=== PATIENT | male | born 1950 | race Caucasian/White ===

== ENCOUNTER 2018-09-07 11:41 | Inpatient (IN) | payer OTHER, MEDICAID ==
[~2018-09-07] VITALS: Ht 170.2 cm; Wt 142.0 kg
[2018-09-07] VITALS (20 sets, daily range): BP systolic 130–168; BP diastolic 52–87
[2018-09-07] MEDS ORDERED: IPRATROPIUM NEB FS 0.5 MG/2.5 ML AMPUL.NEB ONE (11:57)
[2018-09-07] MEDS ORDERED: ALBUTEROL FS 2.5 MG/3 ML VIAL.NEB ONE (11:57)
[2018-09-07] MEDS ORDERED: ALBUTEROL FS 2.5 MG/3 ML VIAL.NEB CONTNEB ONE (12:00)
[2018-09-07] MEDS ORDERED: IPRATROPIUM NEB FS 0.5 MG/2.5 ML AMPUL.NEB NEB ONE (12:00)
[2018-09-07 12:17] LABS: BASOPHILS # (AUTO) 0.2 /CMM (0.0-0.2); BASOPHILS % (AUTO) 0.9 % (0.0-2.0); EOSINOPHILS % (AUTO) 0.4 % (0.0-6.0); HEMATOCRIT 34 % (39-51); HEMOGLOBIN 10.8 g/dL (13.5-17.5); LYMPHOCYTES # (AUTO) 0.8 /CMM (0.8-4.8); LYMPHOCYTES % (AUTO) 4.1 % (20.0-44.0); MEAN CORPUSCULAR HGB CONC 32 g/dl (31.0-36.0); MEAN CORPUSCULAR VOLUME 92 fL (80-96); MONOCYTES # (AUTO) 1.1 /CMM (0.1-1.30); MONOCYTES % (AUTO) 5.7 % (2.0-12.0); NEUTROPHILS # (AUTO) 16.8 /CMM (1.8-8.9); NEUTROPHILS % (AUTO) 88.9 % (43.0-81.0); PLATELET COUNT (AUTO) 554 /CMM (150-450); RDW COEFFICIENT OF VARIATION 13.7 (11.5-15.0); RED BLOOD CELL COUNT(AUTO) 3.67 MIL/uL (4.5-6.0)
[2018-09-07 12:28] LABS: CREATININE 3.2 mg/dL (0.6-1.3); POTASSIUM 4.6 mmol/L (3.5-5.1)
[2018-09-07] MEDS ORDERED: AZTREONAM 1 G in IV NS 0.9% 100 ML IV ONE (12:30)
[2018-09-07] MEDS ORDERED: CEFEPIME 1 GM in IV D5W 50 ML IV ONE (12:30)
[2018-09-07] MEDS ORDERED: VANCOMYCIN 1 GM in IV D5W 250 ML IV ONE (12:30)
--- NOTE | 2018-09-07 12:30 | NUR ---
RT PT CAME IN WITH NON REBREATHER SOB, PLACED ON BIPAP PER MD ORDERS S/T 20/5 16RR 50% O2, ONOFRE WELL. BAG AND MASK AT HOB. CONTINUOS TX GIVEN ONOFRE WELL NO ADVERSE REACTION NOTED ATT. ABG DRAWN WILL CONTINUE TO MONITOR Addendum: 09/07/18 at 1321 by NORM KAPLAN RT Amended: Links added.
[2018-09-07 12:35] LABS: TROPONIN I 0.019 ng/mL (0.00-0.056)
[2018-09-07 12:40] LABS: ALBUMIN 2.8 g/dL (3.4-5.0); BILIRUBIN,DIRECT 0.1 mg/dL (0.0-0.2); BILIRUBIN,TOTAL 0.4 mg/dL (0.2-1.0); TOTAL PROTEIN, SERUM 7.6 g/dL (6.4-8.2)
--- NOTE | 2018-09-07 12:43 | NUR ---
PT BIB PARAMEDICS FROM [facility] FOR LOW SATURATION 88% PLACED OM NRM AT FACILITY SATURATION IMPROVED TO 99% BUT PT DID NOT LOOK THE SAME USUAL. CURRENTLY PT TACHYPNIC DIFFICULTY BREATHING WBC ELEVATED PIV IN RAC PLACED BY MD YOST UNDER ULTRA SOUND, LABS TAKEN AND BLOOD CULTURES DONE. PT ON BIPAP ABG AND EKG DONE.
--- NOTE | 2018-09-07 13:04 | NUR ---
ICU 264
[2018-09-07 14:19] LABS: ABG OXYGEN SATURATION 97.5 % (92.0-98.5); ABG PCO2 51.8 mmHg (35.0-45.0); ABG PH 7.299 (7.350-7.450); ABG PO2 115.4 mmHg (75.0-100.0); AaDO2 182.8 mmHg; COHb 0.9 % (0.5-1.5); MetHb 0.3 % (0.0-1.5); O2Hb 96.3 % (94.0-97.0); SITE, ABG Left Radial; VENT MODE, BG ST 20/5 16RR 50%
[2018-09-07] MEDS ORDERED: MAG HYDROX/AL HYDROX/SIMETH 30 ML UDC PO PRN (14:30)
[2018-09-07] MEDS ORDERED: ZOLPIDEM TARTRATE 5 MG TABLET PO PRN (14:30)
[2018-09-07] MEDS ORDERED: VANCOMYCIN 1 GM in IV NS 0.9% 250 ML IV SCH (14:30)
[2018-09-07] MEDS ORDERED: ONDANSETRON HCL/PF 4 MG/2 ML VIAL IVP PRN (14:30)
[2018-09-07] MEDS ORDERED: ACETAMINOPHEN 325 MG TABLET PO PRN (14:30)
[2018-09-07] MEDS ORDERED: MAGNESIUM HYDROXIDE 30 ML UDC PO PRN (14:30)
[2018-09-07] MEDS ORDERED: Z GUARD REMEDY 2 OZ OINT TP PRN (14:30)
[2018-09-07] MEDS ORDERED: CEFEPIME 1 GM in IV D5W 50 ML IV SCH (14:30)
[2018-09-07] MEDS ORDERED: HYDROCODONE/APAP 5/325MG 1 EACH TABLET PO PRN (14:30)
[2018-09-07] MEDS ORDERED: VANCOMYCIN 500 MG in IV D5W 100 ML IV ONE (15:00)
[2018-09-07] MEDS ORDERED: IV D5/ 0.9% NACL 1,000 ML IV PRN (15:00)
[2018-09-07] MEDS ORDERED: FEE PK DOSING 1 MIN EA MC ONE (15:20)
[2018-09-07] MEDS: ENOXAPARIN SODIUM 30 MG/0.3 ML DISP.SYRIN SQ SCH (15:55)
--- NOTE | 2018-09-07 16:14 | NUR ---
RN NOTE 1410: Admitted 67 y/o, awake, alert to name, lethargic at this time. Off Bipap for transfer, Dr. Rosa, spoke with RT, will do F/U ABG after 2 hours. Keep on Bipap for now per MD. Skin assessment done, noted with BUE and BLE multiple redness, perineal redness. RAC PIV intact. Started Vancomycin, bag given from ER. Ordered Barimaxx. Placed on Hernandez cath, noted with cloudy yellow urine, sent specimen to lab. SR 80's on the monitor. 1500: Spoke with sister, informed re: episode of fall from SNF and with c/o left shoulder pain, before, MD ordered left shoulder Xray. 1600: facilities operations technician doing shoulder Xray. 1610: ABG resulted, Dr. Rosa aware, adjusted Bipap setting. Now on 25/5 50% rate 20.
[2018-09-07 16:23] LABS: ABG BASE EXCESS -2.5 mmol/L; ABG OXYGEN SATURATION 96.6 % (92.0-98.5); ABG PCO2 55.7 mmHg (35.0-45.0); ABG PH 7.269 (7.350-7.450); ABG PO2 94.3 mmHg (75.0-100.0); AaDO2 199.5 mmHg; COHb 0.3 % (0.5-1.5); MetHb 0.6 % (0.0-1.5); O2Hb 95.7 % (94.0-97.0); SITE, ABG Right Radial
[2018-09-07] MEDS: ALBUTEROL FS 2.5 MG/3 ML VIAL.NEB NEB SCH ×2 (16:44→20:03)
[2018-09-07] MEDS: IPRATROPIUM NEB FS 0.5 MG/2.5 ML AMPUL.NEB NEB SCH ×3 (16:44→23:18)
[2018-09-07] MEDS ORDERED: ALLO100T PO (17:32)
[2018-09-07] MEDS ORDERED: AMIN30LI4 PO (17:32)
[2018-09-07] MEDS ORDERED: MULT-447 PO (17:32)
[2018-09-07] MEDS ORDERED: AMLO10TA6 PO (17:32)
[2018-09-07] MEDS ORDERED: INSU100V7 SQ (17:32)
[2018-09-07] MEDS ORDERED: OXYC30TA2 PO (17:32)
[2018-09-07] MEDS ORDERED: INSU100V27 SQ (17:32)
[2018-09-07] MEDS ORDERED: ASCO500T9 PO (17:32)
[2018-09-07] MEDS ORDERED: SERT100T PO (17:32)
[2018-09-07] MEDS ORDERED: ACET-2605 PO ×2 (17:32)
[2018-09-07] MEDS ORDERED: FURO-144 PO (17:32)
[2018-09-07] MEDS ORDERED: BISA10SU8 RC (17:32)
[2018-09-07] MEDS ORDERED: NA P133E RC (17:32)
[2018-09-07] MEDS ORDERED: MAGN400O6 PO (17:32)
[2018-09-07] MEDS ORDERED: LEVO150T8 PO (17:32)
[2018-09-07] MEDS ORDERED: BLOO-668 IN (17:32)
[2018-09-07] MEDS ORDERED: ZINC220C8 PO (17:32)
[2018-09-07] MEDS ORDERED: ACET-868 PO (17:32)
[2018-09-07] MEDS ORDERED: FERR325T23 PO (17:32)
[2018-09-07] MEDS ORDERED: LIRA0.6P2 SQ (17:32)
[2018-09-07] MEDS ORDERED: GABA-534 PO (17:32)
[2018-09-07] MEDS ORDERED: POLY17PO4 PO (17:32)
[2018-09-07] MEDS ORDERED: ALPR2TAB7 PO (17:32)
[2018-09-07] MEDS ORDERED: DOCU-141 PO (17:32)
[2018-09-07] MEDS ORDERED: ATOR10TA PO (17:32)
[2018-09-07 17:33] LABS: APPEARANCE,URINE SL CLOUDY (CLEAR); BILIRUBIN,URINE NEGATIVE (NEGATIVE); BLOOD, URINE 2+ Ery/uL (NEGATIVE); COLOR,URINE YELLOW (YELLOW); KETONES,URINE NEGATIVE (NEGATIVE); LEUKOCYTE ESTERASE ,URINE 1+ (NEGATIVE); NITRITE, URINE NEGATIVE (NEGATIVE); PH,URINE 5.5 (5.0-8.0); PROTEIN,URINE 2+ mg/dl (NEGATIVE); UGLUCOSE NEGATIVE (NEGATIVE); UROBILINOGEN,URINE 0.2 EU/dL (0.2)
[2018-09-07 17:46] LABS: CREATININE, URINE 140.8 MG/DL (30.0-125.0); URINE TOTAL PROTEIN 93.2 mg/dL (0-11.9)
[2018-09-07 17:51] LABS: BACTERIA,URINE Many /HPF (None Seen); SQUAMOUS EPITHELIAL CELL,UR Few /HPF (None Seen); WBC,URINE TOO NUMEROUS TO COUN /HPF (0-3)
[2018-09-07 17:52] LABS: EOSINOPHIL,URINE None Seen
--- NOTE | 2018-09-07 20:08 | NUR ---
Received pt on BIPAP, pt stable on current settings, no SOB noted alarm is on and audible, plugged into red outlet. Addendum: 09/07/18 at 2009 by ADY WILLIS RT Amended: Links added.
--- NOTE | 2018-09-07 20:56 | NUR ---
INCLINED RAILWAY OPERATOR. INITIAL ASSESSMENT. RECEIVED THE PT REST ON THE BED. PT IS LETHARGIC. SLEEPING. BIPAP ON. SETTINGS 20/5, RATE IS 20.FIO2 50%. SAT 98%. NO ACUTE DISTRESS NOTED. PROGRAMMING INTERN SHOWING NSR, IV RT AC 18G. IVF D5NS 50ML/H,HOB ELEVATED. FC PATENT. WILL CONTINUE TO MONITOR VITALS.
[2018-09-07] MEDS ORDERED: AZTREONAM 1 G in IV NS 0.9% 100 ML IV SCH (21:00)
[2018-09-07] MEDS: MEROPENEM 500 MG in IV NS 0.9% 50 ML IV SCH (21:25)
[2018-09-07] MEDS ORDERED: BISACODYL SUPP (10 MG) 10 MG/SUPP.RECT SUPP.RECT RC PRN (22:00)
[2018-09-07] MEDS: DOCUSATE SODIUM 100 MG CAPSULE PO SCH (22:00)
[2018-09-07] MEDS ORDERED: ATORVASTATIN 10 MG TABLET PO SCH (22:00)
[2018-09-07] MEDS ORDERED: DEXTROSE 50%-WATER 50 ML DISP.SYRIN IV PRN (22:00)
[2018-09-07] MEDS: BLOOD SUGAR DIAGNOSTIC 1 EACH STRIP IN SCH (22:53)
[2018-09-07] MEDS ORDERED: INSULIN REGULAR, HUMAN 100 UNIT/ML 3 ML VIAL ONE (22:55)
[2018-09-07] MEDS: INSULIN REGULAR, HUMAN 100 UNIT/ML 3 ML VIAL SQ PRN (23:19)
--- NOTE | 2018-09-07 23:20 | NUR ---
ADJUNCT INSTRUCTOR OF WOMEN'S STUDIES. LIPITOR AND COLACE 2200 NOT GIVEN, PT ON BIPAP. AND PT IS VERY LETHARGIC
[2018-09-08] VITALS (31 sets, daily range): BP systolic 127–174; BP diastolic 55–87
--- NOTE | 2018-09-08 00:49 | NUR ---
PT ON BIPAP. REMAINING SAME BIPAP SETTING TOLERATED WELL.
[2018-09-08] MEDS: BLOOD SUGAR DIAGNOSTIC 1 EACH STRIP IN SCH ×6 (00:57→21:13)
[2018-09-08] MEDS: INSULIN REGULAR, HUMAN 100 UNIT/ML 3 ML VIAL SQ PRN ×6 (01:02→21:15)
[2018-09-08] MEDS: IPRATROPIUM NEB FS 0.5 MG/2.5 ML AMPUL.NEB NEB SCH ×6 (03:36→23:06)
--- NOTE | 2018-09-08 05:27 | NUR ---
MEND WORKER. AM CARE, ORAL CARE, BED BATH GIVEN. LINEN CHANGED, REMAINING SAME BIPAP SETTING TOLERATED WELL. SAT 98%, NO ACUTE DISTRESS NOTED. CANDY PULLER SHOWING NSR. IV RT AC IVF D5NS 50ML/H. HOB ELEVATED. FC PATENT. TURN AND REPOSITION Q2H. WILL CONTINUE TO MONITOR VITALS.
[2018-09-08 05:32] LABS: BASOPHILS # (AUTO) 0.1 /CMM (0.0-0.2); BASOPHILS % (AUTO) 0.3 % (0.0-2.0); EOSINOPHILS % (AUTO) 0.1 % (0.0-6.0); HEMATOCRIT 29 % (39-51); HEMOGLOBIN 9.5 g/dL (13.5-17.5); LYMPHOCYTES # (AUTO) 0.7 /CMM (0.8-4.8); LYMPHOCYTES % (AUTO) 2.9 % (20.0-44.0); MEAN CORPUSCULAR HGB CONC 33 g/dl (31.0-36.0); MEAN CORPUSCULAR VOLUME 92 fL (80-96); MONOCYTES # (AUTO) 1.4 /CMM (0.1-1.30); MONOCYTES % (AUTO) 6.2 % (2.0-12.0); NEUTROPHILS # (AUTO) 20.5 /CMM (1.8-8.9); NEUTROPHILS % (AUTO) 90.5 % (43.0-81.0); PLATELET COUNT (AUTO) 447 /CMM (150-450); RED BLOOD CELL COUNT(AUTO) 3.14 MIL/uL (4.5-6.0); WHITE BLOOD COUNT (AUTO) 22.6 K/uL (4.3-11.0)
[2018-09-08 05:46] LABS: CHOLESTEROL 124 mg/dL (<200); CREATINE KINASE, TOTAL 912 U/L (39-308); HDL CHOLESTEROL 32 mg/dL (40-60); LDL 72 mg/dL (0-99); TRIGLYCERIDES 106 mg/dL (30-150)
[2018-09-08 05:52] LABS: ALANINE AMINOTRANSFERASE 34 U/L (12-78); ALBUMIN 2.4 g/dL (3.4-5.0); ALKALINE PHOSPHATASE 164 U/L (46-116); ASPARTATE AMINOTRANSFERASE 55 U/L (15-37); BILIRUBIN,TOTAL 0.4 mg/dL (0.2-1.0); CALCIUM, SERUM 8.9 mg/dL (8.5-10.1); CARBON DIOXIDE 29 mmol/L (21-32); CHLORIDE 101 mmol/L (98-107); CREATININE 3.1 mg/dL (0.6-1.3); GLUCOSE 191 mg/dL (74-106); MAGNESIUM 2.4 mg/dL (1.8-2.4); PHOSPHORUS 4.2 mg/dL (2.5-4.9); POTASSIUM 4.7 mmol/L (3.5-5.1); SODIUM SERUM 137 mmol/L (136-145); TOTAL PROTEIN, SERUM 6.9 g/dL (6.4-8.2); UREA NITROGEN, BLOOD 64 mg/dL (7-18)
[2018-09-08] MEDS: LEVOTHYROXINE SODIUM 75 MCG TABLET PO SCH (07:30)
--- NOTE | 2018-09-08 08:06 | NUR ---
WOUND CARE CONSULT: PT PRESENTS WITH PEELING SKIN TO UPPER ARMS, UNKNOWN ETIOLOGY, RASH TO GROIN FOLDS, PERINEUM AND INNER THIGHS AND RT THIGH WOUND/SCRATCH, PRESENT ON ADMISSION. DEFER TO MD FOR ARMS. PT ON BARIMAX ETS AIR BED. PT ON BIPAP AT THIS TIME. PT CURSING AT TIMES. RECOMMENDATIONS MADE FOR WOUND AND SKIN CARE AND PROTECTION. DISCUSSED WITH NURSING STAFF. PT HAS KELVIN CATH. CURRENT BURT SCORE IS 12. MD IN AGREEMENT WITH PLAN OF CARE. Addendum: 09/08/18 at 0809 by JANET BOWLING WNDNU Amended: Links added.
[2018-09-08 08:08] LABS: THYROID STIMULATING HORMONE 0.479 uIU/mL (0.358-3.74)
[2018-09-08] MEDS: ALBUTEROL FS 2.5 MG/3 ML VIAL.NEB NEB SCH ×4 (08:26→19:42)
[2018-09-08] MEDS: MEROPENEM 500 MG in IV NS 0.9% 50 ML IV SCH ×2 (08:35→21:13)
[2018-09-08] MEDS: GABAPENTIN 300 MG CAPSULE PO SCH ×3 (08:52→17:12)
[2018-09-08] MEDS: AMLODIPINE BESYLATE 10 MG TABLET PO SCH (08:52)
[2018-09-08] MEDS: SERTRALINE HCL 25 MG TABLET PO SCH (08:52)
[2018-09-08] MEDS: ASCORBIC ACID 500 MG TABLET PO SCH (08:52)
[2018-09-08] MEDS: NITROGLYCERIN 30 GM TUBE TP SCH ×2 (08:53→21:13)
[2018-09-08] MEDS: LACTOBACILLUS RHAMNOSUS GG 1 EACH CAP.SPRINK PO SCH ×2 (08:55→17:12)
[2018-09-08] MEDS ORDERED: FERROUS SULFATE (325 MG) 325 MG/TAB TABLET PO SCH (09:00)
[2018-09-08 10:23] LABS: ABG BASE EXCESS 1.3 mmol/L; ABG OXYGEN SATURATION 94.2 % (92.0-98.5); ABG PCO2 50.8 mmHg (35.0-45.0); ABG PH 7.351 (7.350-7.450); ABG PO2 69.3 mmHg (75.0-100.0); AaDO2 230.1 mmHg; COHb 0.3 % (0.5-1.5); MetHb 0.5 % (0.0-1.5); O2Hb 93.4 % (94.0-97.0); SITE, ABG Right Radial; VENT MODE, BG VENTI MASK 50%
--- NOTE | 2018-09-08 11:23 | NUR ---
RN NOTE 0745: Received patient on Bipap, no respiratory distress noted at this time. PIV intact, IVF infusing as ordered. No c/o discomfort at this time. Hernandez cath intact, noted with clear yellow urine drained to BSD. On Barimaxx. Off DVT pumps for BLE redness. 0900: RT placed patient on Venturi mask 50%, tolerated so far. 0930: ABG resulted, kept on Venturi mask for now. Patient is able to take PO meds, crushed. Patient refused breakfast, will continue to encourage. 1020: S/E by Dr. Bryant, patient is answering all questions. More responsive today. 1100: S/E by Dr. Cruz, no new order at this time. 1120: No any significant changes noted at this time. Kept clean, warm and dry. Needs anticipated.
[2018-09-08] MEDS: BACITRACIN/POLYMYXIN B 15 GM TUBE TP SCH (11:38)
[2018-09-08] MEDS: CLOTRIMAZOLE 1% 15 GM TUBE TP SCH ×2 (11:38→17:12)
--- NOTE | 2018-09-08 18:09 | NUR ---
RN NOTE No any significant changes noted. Kept clean, warm and dry. Needs attended. Kept call light at reach. On Barimaxx. on 4LPM of O2 via NC, will do Noc BIpap per Pulmo. Hernandez cath intact, noted with yellow urine drained to BSD. PIV intact.
--- NOTE | 2018-09-08 19:00 | NUR ---
CIGARETTE CARTON SEALER. INITIAL ASSESSMENT. RECEIVED THE PT REST ON THE BED. SLEEPING. OXYGEN 4L VIA NASAL CANNULA. SAT 98%. STATION TENDER SHOWING NSR. IV RT AC 18G. SALINE LOCK. HOB ELEVATED. FC PATENT. WILL CONTINUE TO MONITOR VITALS.
--- NOTE | 2018-09-08 20:06 | NUR ---
MACHINE HAND. RESPIRATORY MARIBEL TRYING TO PLACE BIPAP SUDDEN PT CRYING, PULLING OUT BIPAP. PT SAYING POLICE AROUND ME. I CALLED HEALTH MANAGER JAAJ . ORDERED ATIVAN 0.25MG ATIVAN IV ONCE. WILL CONTINUE TO MONITOR
--- NOTE | 2018-09-08 20:07 | NUR ---
BREATHING TX WASTED DUE TO PT IS UNCOOPERATIVE AND AGITATED AT THIS TIME. LEEANNA MCCRAY NOTIFIED. Addendum: 09/08/18 at 2019 by MARIBEL WINTERS RT UNABLE TO PLACED NOCTURNAL BIPAP AT THIS TIME DUE TO PT IS COMBATIVE AND AGITATED AT THIS TIME . LEEANNA MCCRAY NOTIFIED
--- NOTE | 2018-09-08 20:29 | NUR ---
PT IS CALM AT THIS TIME . PLACED NOCTURNAL BIPAP 25/5, RATE 20, 50%. BIPAP PLUGGED INTO RED OUTLET AND ALARMS SET AND AUDIBLE. AMBU BAG AT BEDSIDE. NO RESPIRATORY DISTRESS AT THIS TIME. RN SHAZIA NOTIFIED.
[2018-09-08] MEDS ORDERED: LORAZEPAM INJ 2 MG/ML VIAL IV ONE (20:30)
[2018-09-08] MEDS: ENOXAPARIN SODIUM 30 MG/0.3 ML DISP.SYRIN SQ SCH (21:13)
[2018-09-08] MEDS: DOCUSATE SODIUM 100 MG CAPSULE PO SCH (21:14)
--- NOTE | 2018-09-08 21:45 | NUR ---
Patient resides at [facility] [phone]. He is morbidly obese, requires assistance with adl's. His SNF attending MD Dr. Antonino Carter [phone]. He is currently in ICU on BIPAP. Current plan BIPAP off during the day and cont nocturnal BIPAP. Current dc plan is to return to [facility] via ambulance when discharge. Addendum: 09/08/18 at 2146 by SARINA ALSTON RN Amended: Links added.
[2018-09-09] VITALS (22 sets, daily range): BP systolic 105–154; BP diastolic 60–81
[2018-09-09] MEDS: INSULIN REGULAR, HUMAN 100 UNIT/ML 3 ML VIAL SQ PRN ×6 (00:29→20:56)
[2018-09-09] MEDS: BLOOD SUGAR DIAGNOSTIC 1 EACH STRIP IN SCH ×6 (00:31→20:52)
[2018-09-09] MEDS: IPRATROPIUM NEB FS 0.5 MG/2.5 ML AMPUL.NEB NEB SCH ×6 (03:12→23:52)
--- NOTE | 2018-09-09 04:34 | NUR ---
DIRECTOR OF ANCILLARY SERVICES. AM CARE, ORAL CARE, BED BATH GIVEN. LINEN CHANGED, REMAINING SAME BIPAP SETTING TOLERATED WELL. SAT 96%. NO ACUTE DISTRESS NOTED. MS SQL DBA SHOWING NSR. IV RT AC 18G. SALINE LOCK. HOB ELEVATED. TURN AND REPOSITION Q2H. FC PATENT. URINE DRAINING. TURN AND REPOSITION Q2H. WILL CONTINUE TO MONITOR VITALS.
[2018-09-09 05:25] LABS: BASOPHILS % (AUTO) 0.1 % (0.0-2.0); EOSINOPHILS % (AUTO) 0.4 % (0.0-6.0); HEMATOCRIT 31 % (39-51); HEMOGLOBIN 10.1 g/dL (13.5-17.5); LYMPHOCYTES # (AUTO) 1.1 /CMM (0.8-4.8); LYMPHOCYTES % (AUTO) 5.6 % (20.0-44.0); MEAN CORPUSCULAR HGB CONC 32 g/dl (31.0-36.0); MEAN CORPUSCULAR VOLUME 94 fL (80-96); MONOCYTES # (AUTO) 1.3 /CMM (0.1-1.30); MONOCYTES % (AUTO) 6.5 % (2.0-12.0); NEUTROPHILS # (AUTO) 17.5 /CMM (1.8-8.9); NEUTROPHILS % (AUTO) 87.4 % (43.0-81.0); PLATELET COUNT (AUTO) 482 /CMM (150-450); RED BLOOD CELL COUNT(AUTO) 3.33 MIL/uL (4.5-6.0)
[2018-09-09 05:36] LABS: CALCIUM, SERUM 8.1 mg/dL (8.5-10.1); CREATININE 2.9 mg/dL (0.6-1.3); MAGNESIUM 2.6 mg/dL (1.8-2.4); PHOSPHORUS 4.4 mg/dL (2.5-4.9); POTASSIUM 4.7 mmol/L (3.5-5.1)
--- NOTE | 2018-09-09 07:30 | NUR ---
SALES NEGOTIATOR NOTE: RECEIVED PATIENT IN BED, ASLEEP, BUT AROUSABLE TO TOUCH AND VERBALLY RESPONSIVE. ON NOCTURNAL BIPAP AT THE MOMENT AND WILL INFORM THE RESPIRATORY THERAPIST TO REMOVE THE BIPAP. RESPIRATION EVEN AND UNLABORED. SATURATING 95%. ON BAKED AND GRAPHITE INSPECTOR SR HR= 83. (R) AC IV SITE IN PLACED INTACT AND PATENT. HOB ELEVATED. ON BARIMAX BED. WARREN CATHETER IN PLACED WITH YELLOW URINE DRAINING TO GRAVITY. BED LOCKED AT ALL TIMES. CALL LIGHT WITHIN REACH. NEEDS ANTICIPATED.
[2018-09-09] MEDS: ALBUTEROL FS 2.5 MG/3 ML VIAL.NEB NEB SCH ×4 (07:49→19:25)
[2018-09-09] MEDS: MEROPENEM 500 MG in IV NS 0.9% 50 ML IV SCH ×2 (08:04→20:52)
[2018-09-09] MEDS: LEVOTHYROXINE SODIUM 75 MCG TABLET PO SCH (08:23)
[2018-09-09] MEDS: GABAPENTIN 300 MG CAPSULE PO SCH ×3 (08:36→17:25)
[2018-09-09] MEDS: LACTOBACILLUS RHAMNOSUS GG 1 EACH CAP.SPRINK PO SCH ×2 (08:36→17:25)
[2018-09-09] MEDS: AMLODIPINE BESYLATE 10 MG TABLET PO SCH (08:37)
[2018-09-09] MEDS: ASCORBIC ACID 500 MG TABLET PO SCH (08:37)
[2018-09-09] MEDS: NITROGLYCERIN 30 GM TUBE TP SCH ×2 (08:37→20:53)
[2018-09-09] MEDS: SERTRALINE HCL 25 MG TABLET PO SCH (08:37)
[2018-09-09] MEDS: CLOTRIMAZOLE 1% 15 GM TUBE TP SCH ×2 (08:38→17:35)
[2018-09-09] MEDS: BACITRACIN/POLYMYXIN B 15 GM TUBE TP SCH (08:39)
[2018-09-09] MEDS: FUROSEMIDE 40 MG/4 ML VIAL IV SCH ×2 (12:41→17:25)
[2018-09-09] MEDS: SOD FERRIC GLUC 125 MG in IV NS 0.9% 100 ML IV SCH (14:40)
[2018-09-09] MEDS ORDERED: VANCOMYCIN 1.5 GM in IV D5W 500 ML IV SCH (15:00)
[2018-09-09 15:09] LABS: PTH, INTACT 66 pg/mL (15-65)
--- NOTE | 2018-09-09 16:30 | NUR ---
PACKAGE DYER NOTE: PATIENT REPORT WAS GIVEN TO LEEANNA MAYERS FOR CONTINUITY OF CARE AND PATIENT WILL BE TRANSFER TO ROOM 107 IN [place]. PATIENT ON STABLE CONDITION.
--- NOTE | 2018-09-09 16:59 | NUR ---
MULTI TOWNSHIP ASSESSOR NOTE: PATIENT WAS TRANSFERRED VIA [facility] BED WITH 4 STAFF INCLUDING THE PRIMARY NURSE WITH THE PATIENT'S BIPAP MACHINE. PATIENT WAS AWAKE, ALERT AND ABLE TO MAKE HIS NEEDS KNOWN. ENDORSEMENT WAS GIVEN TO LEEANNA MAYERS AT THE BEDSIDE. IAN JACOBSEN WAS MADE AWARE OF THE TRANSFER. SPOKE WITH MELANI MYERS, SISTER WAS ALSO INFORMED.
--- NOTE | 2018-09-09 17:19 | NUR ---
MS/special forces weapons sergeant Patient received from ICU. Oriented to new surroundings, call light within each. Will continue to monitor.
--- NOTE | 2018-09-09 18:09 | NUR ---
MS/RN End note Vancomycin dose hung as ordered, level 10. Oral medications administered as ordered, no difficulty swallowing pills. Tele reading NSR. Patient remains in stable condition, all needs attended, call light within reach. Will endorse to night assistant.
--- NOTE | 2018-09-09 19:00 | NUR ---
RN ANN NOTE PATIENT IS AOX2, SPEECH CLEAR, DENIES PAIN, ON 4L O2 VIA NC, NO S/SX OF CARDIAC OR RESPIRATORY DISTRESS, F/C DRAINING TO GRAVITY YELLOW URINE, SKIN KEPT CLEAN AND DRY, 18G IV IN RAC, SITE IS CDI, PATENT, FLUSHING WELL, SAFETY MAINTAINED AT ALL TIMES, BED IN LOW LOCKED POSITION, CALL LIGHT WITHIN REACH, WILL CONTINUE TO MONITOR FRO ANY CHANGES.
[2018-09-09] MEDS: ENOXAPARIN SODIUM 30 MG/0.3 ML DISP.SYRIN SQ SCH (20:55)
[2018-09-09] MEDS: DOCUSATE SODIUM 100 MG CAPSULE PO SCH (21:10)
[2018-09-10] VITALS: BP 141/68
[2018-09-10] MEDS: BLOOD SUGAR DIAGNOSTIC 1 EACH STRIP IN SCH ×6 (00:25→21:54)
[2018-09-10] MEDS: INSULIN REGULAR, HUMAN 100 UNIT/ML 3 ML VIAL SQ PRN ×5 (00:26→22:04)
[2018-09-10] MEDS: IPRATROPIUM NEB FS 0.5 MG/2.5 ML AMPUL.NEB NEB SCH ×7 (03:30→23:44)
[2018-09-10 04:00] VITALS: BP 139/62
[2018-09-10] MEDS: ALBUTEROL FS 2.5 MG/3 ML VIAL.NEB NEB SCH ×5 (05:26→19:12)
--- NOTE | 2018-09-10 07:15 | NUR ---
ANN RN NOTE RECEIVED PATIENT IN STABLE CONDITION SLEEPING IN BED, BIPAP ON. SINUS RHYTHM WITH A HEART RATE OF 65 ON THE CARTON FORMING MACHINE HELPER. WARREN CATHETER DRAINING YELLOW URINE TO GRAVITY, IV SITE ON RIGHT ANTECUBITAL INTACT SALINE LOCK. HEAD OF BED ELEVATED, BED IN LOW AND LOCKED POSITION, CALL LIGHT WITHIN REACH, WILL CONTINUE TO MONITOR CLOSELY.
[2018-09-10 08:00] VITALS: BP 125/85
[2018-09-10] MEDS: MEROPENEM 500 MG in IV NS 0.9% 50 ML IV SCH ×2 (08:35→21:54)
[2018-09-10] MEDS: NITROGLYCERIN 30 GM TUBE TP SCH ×2 (08:37→21:56)
[2018-09-10] MEDS: CLOTRIMAZOLE 1% 15 GM TUBE TP SCH ×2 (08:38→18:10)
[2018-09-10] MEDS: LACTOBACILLUS RHAMNOSUS GG 1 EACH CAP.SPRINK PO SCH ×2 (08:39→18:11)
[2018-09-10] MEDS: LEVOTHYROXINE SODIUM 75 MCG TABLET PO SCH (08:39)
[2018-09-10] MEDS: SERTRALINE HCL 25 MG TABLET PO SCH (08:39)
[2018-09-10] MEDS: FUROSEMIDE 40 MG/4 ML VIAL IV SCH (08:39)
[2018-09-10] MEDS: BACITRACIN/POLYMYXIN B 15 GM TUBE TP SCH (08:39)
[2018-09-10] MEDS: ASCORBIC ACID 500 MG TABLET PO SCH (08:40)
[2018-09-10] MEDS: AMLODIPINE BESYLATE 10 MG TABLET PO SCH (08:40)
[2018-09-10] MEDS: GABAPENTIN 300 MG CAPSULE PO SCH ×3 (08:40→18:11)
[2018-09-10 09:37] LABS: BASOPHILS # (AUTO) 0.2 /CMM (0.0-0.2); BASOPHILS % (AUTO) 1.2 % (0.0-2.0); HEMATOCRIT 30 % (39-51); HEMOGLOBIN 9.7 g/dL (13.5-17.5); LYMPHOCYTES # (AUTO) 1.8 /CMM (0.8-4.8); LYMPHOCYTES % (AUTO) 9.8 % (20.0-44.0); MEAN CORPUSCULAR HGB CONC 32 g/dl (31.0-36.0); MEAN CORPUSCULAR VOLUME 93 fL (80-96); MONOCYTES # (AUTO) 1.3 /CMM (0.1-1.30); MONOCYTES % (AUTO) 7.1 % (2.0-12.0); NEUTROPHILS # (AUTO) 14.6 /CMM (1.8-8.9); NEUTROPHILS % (AUTO) 79.9 % (43.0-81.0); PLATELET COUNT (AUTO) 465 /CMM (150-450); RED BLOOD CELL COUNT(AUTO) 3.27 MIL/uL (4.5-6.0); WHITE BLOOD COUNT (AUTO) 18.3 K/uL (4.3-11.0)
[2018-09-10 09:49] LABS: CREATININE 2.6 mg/dL (0.6-1.3); MAGNESIUM 2.7 mg/dL (1.8-2.4); PHOSPHORUS 5.1 mg/dL (2.5-4.9); POTASSIUM 4.9 mmol/L (3.5-5.1)
[2018-09-10 09:52] LABS: ABG OXYGEN SATURATION 92.5 % (92.0-98.5); ABG PCO2 45.9 mmHg (35.0-45.0); ABG PH 7.379 (7.350-7.450); ABG PO2 65.8 mmHg (75.0-100.0); AaDO2 137.6 mmHg; COHb 0.3 % (0.5-1.5); MetHb 0.5 % (0.0-1.5); O2Hb 91.8 % (94.0-97.0); SITE, ABG Right Radial; VENT MODE, BG 4LNC
[2018-09-10] MEDS: FUROSEMIDE 100 MG/10 ML VIAL IV SCH ×3 (11:58→18:10)
[2018-09-10 12:00] VITALS: BP 132/60
[2018-09-10] MEDS: ALPRAZOLAM 1 MG TABLET PO PRN (14:34)
[2018-09-10] MEDS: SOD FERRIC GLUC 125 MG in IV NS 0.9% 100 ML IV SCH (14:46)
[2018-09-10 16:00] VITALS: BP_SYST 132; BP_SYST 139; BP_DIAS 60; BP_DIAS 61
--- NOTE | 2018-09-10 19:31 | NUR ---
SENIOR ACCOUNT EXECUTIVE NOTE PATIENT RESTING IN BED IN STABLE CONDITION, SINUS RHYTHM ON THE UNIT MANAGER, HEART RATE IN THE 70S. NO RESPIRATORY DISTRESS NOTED. PERIODS OF CONFUSION THROUGHOUT THE DAY NOTED. IV SITE ON LEFT HAND INTACT SALINE LOCK. HEAD OF BED ELEVATED, BED IN LOW AND LOCKED POSITION, CALL LIGHT WITHIN REACH, ENDORSED TO TOOL DESIGN ENGINEER NURSE FOR CONTINUITY OF CARE.
[2018-09-10 20:00] VITALS: BP 142/66
[2018-09-10] MEDS: ENOXAPARIN SODIUM 30 MG/0.3 ML DISP.SYRIN SQ SCH (21:55)
[2018-09-10] MEDS: DOCUSATE SODIUM 100 MG CAPSULE PO SCH (21:56)
[2018-09-11] VITALS: BP 128/63
--- NOTE | 2018-09-11 00:19 | NUR ---
PATIENT WAS RECEIVED ON BIPAP ORDER WITH NOTED SETTINGS. ALARMS ARE ON AND AUDIBLE.PATIENT STABLE AT THIS TIME AND TOLERATED CURRENT SETTINGS. WILL CONTINUE TO MONITOR. Addendum: 09/11/18 at 0025 by WILLARD LINK RT Amended: Links added.
[2018-09-11] MEDS: BLOOD SUGAR DIAGNOSTIC 1 EACH STRIP IN SCH ×5 (01:39→16:59)
[2018-09-11] MEDS: INSULIN REGULAR, HUMAN 100 UNIT/ML 3 ML VIAL SQ PRN ×5 (01:39→17:04)
[2018-09-11] MEDS: IPRATROPIUM NEB FS 0.5 MG/2.5 ML AMPUL.NEB NEB SCH ×4 (03:32→15:26)
[2018-09-11 04:00] VITALS: BP 148/70
[2018-09-11 06:07] LABS: BASOPHILS # (AUTO) 0.1 /CMM (0.0-0.2); BASOPHILS % (AUTO) 0.4 % (0.0-2.0); EOSINOPHILS % (AUTO) 3.4 % (0.0-6.0); HEMATOCRIT 31 % (39-51); LYMPHOCYTES # (AUTO) 1.6 /CMM (0.8-4.8); MEAN CORPUSCULAR HGB CONC 32 g/dl (31.0-36.0); MEAN CORPUSCULAR VOLUME 92 fL (80-96); MONOCYTES # (AUTO) 1.3 /CMM (0.1-1.30); MONOCYTES % (AUTO) 8.9 % (2.0-12.0); NEUTROPHILS # (AUTO) 11.1 /CMM (1.8-8.9); NEUTROPHILS % (AUTO) 76.3 % (43.0-81.0); PLATELET COUNT (AUTO) 544 /CMM (150-450); RED BLOOD CELL COUNT(AUTO) 3.37 MIL/uL (4.5-6.0); WHITE BLOOD COUNT (AUTO) 14.5 K/uL (4.3-11.0)
[2018-09-11 06:21] LABS: CALCIUM, SERUM 8.5 mg/dL (8.5-10.1); CREATININE 2.6 mg/dL (0.6-1.3); MAGNESIUM 2.6 mg/dL (1.8-2.4); PHOSPHORUS 5.2 mg/dL (2.5-4.9); POTASSIUM 4.2 mmol/L (3.5-5.1)
--- NOTE | 2018-09-11 06:31 | NUR ---
RN NOTE PATIENT REMAINED STABLE DURING MY SHIFT, TURNED AND REPOSITIONED Q 2 HOURS, WOUND CARE PROVIDED ORDERED PER MD, ALL SAFETY MEASURES TAKEN, CALL LIGHT WITHIN REACH, BED IN THE LOWEST POSITION, BED ALARM ACTIVATED, WILL ENDORSE TO AM SHIFT TO CONTINUE CARE
--- NOTE | 2018-09-11 07:10 | NUR ---
FORM TAMPING MACHINE OPERATOR NOTE RECEIVED PATIENT IN STABLE CONDITION, SINUS RHYTHM ON THE ORGAN TUNER. LEFT HAND IV SITE INTACT SALINE LOCK. NO RESPIRATORY DISTRESS NOTED. HEAD OF BED ELEVATED, BED IN LOW AND LOCKED POSITION, WILL CONTINUE TO MONITOR CLOSELY.
[2018-09-11 08:00] VITALS: BP 151/58
[2018-09-11] MEDS: ALBUTEROL FS 2.5 MG/3 ML VIAL.NEB NEB SCH ×3 (08:02→15:26)
[2018-09-11 08:07] LABS: *SPE A/G RATIO 0.8 (0.7-1.7); *SPE ALBUMIN 2.5 g/dL (2.9-4.4); *SPE ALPHA-1-GLOBULIN 0.5 g/dL (0.0-0.4); *SPE ALPHA-2-GLOBULIN 1.1 g/dL (0.4-1.0); *SPE BETA GLOBULIN 0.9 g/dL (0.7-1.3); *SPE GLOBULIN, TOTAL 3.3 g/dL (2.2-3.9); *SPE M-SPIKE Not Observed g/dL (Not Observed); *SPEGAMMA GLOBULIN 0.7 g/dL (0.4-1.8)
[2018-09-11] MEDS: LACTOBACILLUS RHAMNOSUS GG 1 EACH CAP.SPRINK PO SCH ×2 (10:01→16:59)
[2018-09-11] MEDS: GABAPENTIN 300 MG CAPSULE PO SCH ×3 (10:02→17:00)
[2018-09-11] MEDS: ASCORBIC ACID 500 MG TABLET PO SCH (10:02)
[2018-09-11] MEDS: SERTRALINE HCL 25 MG TABLET PO SCH (10:03)
[2018-09-11] MEDS: ALPRAZOLAM 1 MG TABLET PO PRN (10:03)
[2018-09-11] MEDS: AMLODIPINE BESYLATE 10 MG TABLET PO SCH (10:04)
[2018-09-11] MEDS: CLOTRIMAZOLE 1% 15 GM TUBE TP SCH ×2 (10:05→17:00)
[2018-09-11] MEDS: BACITRACIN/POLYMYXIN B 15 GM TUBE TP SCH (10:05)
[2018-09-11] MEDS: NITROGLYCERIN 30 GM TUBE TP SCH (10:07)
[2018-09-11] MEDS: MEROPENEM 500 MG in IV NS 0.9% 50 ML IV SCH (10:07)
[2018-09-11] MEDS: LEVOTHYROXINE SODIUM 75 MCG TABLET PO SCH (10:08)
[2018-09-11] MEDS ORDERED: LEVOFLOXACIN (750 MG) 750 MG TABLET PO SCH (11:00)
[2018-09-11] MEDS ORDERED: TRAMADOL HCL 50 MG TABLET PO PRN (11:30)
[2018-09-11 12:00] VITALS: BP 146/62
[2018-09-11] MEDS: SOD FERRIC GLUC 125 MG in IV NS 0.9% 100 ML IV SCH (14:14)
[2018-09-11] MEDS ORDERED: LACT1CAP72 PO (15:17)
[2018-09-11] MEDS ORDERED: ALPR1TAB7 PO (15:17)
[2018-09-11] MEDS ORDERED: CLOT15CR35 TP (15:17)
[2018-09-11] MEDS ORDERED: LEVO750T21 PO (15:17)
[2018-09-11 16:00] VITALS: BP 112/73
--- NOTE | 2018-09-11 19:15 | NUR ---
WANIGAN CLERK NOTE ENDORSED PATIENT TO TUBE CUTTER OPERATOR NURSE IN STABLE CONDITION FOR CONTINUITY OF CARE.
--- NOTE | 2018-09-11 20:24 | NUR ---
RN NOTES 8:15 PATIENT LEFT WITH TRANSPORTATION STAFF VIA GURNEY. PATIENT IN STABLE CONDITION WITH NO SIGNS OF DISTRESS. REMOVED SALINE LOCK ON LEFT HAND USING STERILE TECHNIQUE. GAVE REPORT TO LEEANNA PALAFOX ([facility])
== END 2018-09-11 20:57 | disposition short-term general hospital (02) | DRG 177 ==
LOC: ER 11:51 → ICU 13:35 → TELE-TD 09-09 16:58 → TELE1 09-10 10:56 → MEDSG1 09-11 17:20
PROVIDERS: ADMIT Internal Medicine; ATTEND Internal Medicine
PROC: 5A09457 Assistance with Respiratory Ventilation, 24-96 Consecutive Hours, Continuous Positive Airway Pressure (ICD-10-PCS; principal; 2018-09-07)
DX: J15.6 Pneumonia due to other Gram-negative bacteria (principal); J96.21 Acute and chronic respiratory failure with hypoxia; J96.22 Acute and chronic respiratory failure with hypercapnia; N17.0 Acute kidney failure with tubular necrosis; G92 Toxic encephalopathy; E44.0 Moderate protein-calorie malnutrition; I13.0 Hypertensive heart and chronic kidney disease with heart failure and stage 1 through stage 4 chronic kidney disease, or unspecified chronic kidney disease; N39.0 Urinary tract infection, site not specified; J44.0 Chronic obstructive pulmonary disease with (acute) lower respiratory infection; Z68.42 Body mass index [BMI] 45.0-49.9, adult; E66.2 Morbid (severe) obesity with alveolar hypoventilation; F11.20 Opioid dependence, uncomplicated; F13.20 Sedative, hypnotic or anxiolytic dependence, uncomplicated; E11.22 Type 2 diabetes mellitus with diabetic chronic kidney disease; K21.9 Gastro-esophageal reflux disease without esophagitis; N18.9 Chronic kidney disease, unspecified; E11.40 Type 2 diabetes mellitus with diabetic neuropathy, unspecified; E11.610 Type 2 diabetes mellitus with diabetic neuropathic arthropathy; E78.5 Hyperlipidemia, unspecified; E03.9 Hypothyroidism, unspecified; D63.8 Anemia in other chronic diseases classified elsewhere; I25.10 Atherosclerotic heart disease of native coronary artery without angina pectoris; I50.9 Heart failure, unspecified; Z79.4 Long term (current) use of insulin; Z90.49 Acquired absence of other specified parts of digestive tract; B96.1 Klebsiella pneumoniae [K. pneumoniae] as the cause of diseases classified elsewhere; F32.9 Major depressive disorder, single episode, unspecified; G89.4 Chronic pain syndrome
CPT/HCPCS: 36415; 36600; 70450-TC; 71045-TC; 73030-TC; 76770-TC; 80048-TC; 80053-TC; 80061-TC; 80076-TC; 80202-TC; 81000-TC; 82550-TC; 82553-TC; 82570-TC; 82728-TC; 82803-TC; 82962-TC; 83540-TC; 83605-TC; 83735-TC; 83880; 83970; 84100-TC; 84155; 84155-TC; 84165; 84300-TC; 84439-TC; 84443-TC; 84484-TC; 85025-TC; 85730-TC; 87040-TC; 87081-TC; 87086-TC; 87186-TC; 93307-TC; 94660; A4216; A4606; G0378; J0692; J1650; J1815; J1940; J2060; J2185; J2916; J3370; J3490; J7030; J7042; J7050; J7060; Z7610